=== PATIENT | female | born 1975 | race African-American/Black ===

== ENCOUNTER 2022-07-07 18:22 | Emergency (ER) | payer BC ==
[~2022-07-07] VITALS: Ht 160 cm; Wt 54.0 kg
[~2022-07-07 18:22] MED LIST: LEVO500T69 PO; MRTZ30T1; ONDAN4ODT PO
[2022-07-07 18:40] LABS: BASOPHILS % (AUTO) 1 % (0-10); EOSINOPHILS % (AUTO) 1 % (0-10); HEMATOCRIT 32 % (35-52); HEMOGLOBIN 10.7 g/dL (11.5-16.0); LYMPHOCYTES # (AUTO) 1.3 10^3/uL (1.0-4.0); LYMPHOCYTES % (AUTO) 34 % (12-44); MEAN CORPUSCULAR HEMOGLOBIN 27 pg (25-34); MEAN CORPUSCULAR HGB CONC 33 g/dL (32-36); MEAN CORPUSCULAR VOLUME 80 fL (80-99); MEAN PLATELET VOLUME 10.9 fL (9.0-12.2); MONOCYTES # (AUTO) 0.3 10^3/uL (0.0-1.0); MONOCYTES % (AUTO) 8 % (0-12); NEUTROPHILS # (AUTO) 2.3 10^3/uL (1.8-7.8); NEUTROPHILS % (AUTO) 57 % (42-75); PLATELET COUNT 280 10^3/uL (130-400)
[2022-07-07 18:45] VITALS: BP_SYST 106; BP_SYST 126; BP_SYST 136; BP_DIAS 80; BP_DIAS 83; BP_DIAS 87
[2022-07-07] MEDS ORDERED: LACTATED RINGERS 1,000 ML IV ONE ×2 (18:45→20:15)
[2022-07-07 18:54] LABS: ALBUMIN 4.3 GM/DL (3.2-4.5); CHLORIDE 109 MMOL/L (98-107); POTASSIUM 3.5 MMOL/L (3.6-5.0); SODIUM 142 MMOL/L (135-145)
[2022-07-07 18:55] LABS: CALCIUM 9.1 MG/DL (8.5-10.1)
[2022-07-07 18:56] LABS: GLUCOSE 100 MG/DL (70-105); TOTAL PROTEIN 8.4 GM/DL (6.4-8.2)
[2022-07-07 18:57] LABS: CARBON DIOXIDE 16 MMOL/L (21-32)
[2022-07-07 18:58] LABS: BILIRUBIN,TOTAL 0.2 MG/DL (0.1-1.0)
[2022-07-07 19:00] LABS: ALKALINE PHOSPHATASE 93 U/L (40-136); CREATININE SERUM 0.96 MG/DL (0.60-1.30); GFR ESTIMATED 73
--- NOTE | 2022-07-07 19:00 | ED Syncope ---
General Chief Complaint: Dizziness/Syncope Stated Complaint: WEAKNESS Nursing Triage Note: ARRIVED VIA EMS FROM [facility]. PT STATES SHE WAS STANDING OUTSIDE WAITING FOR THE [facility] AND PASSED OUT. DENIES A HX OF PASSING OUT. UNKNOWN IF SHE HIT HER HEAD BUT SHE STATES IT DOES NOT FEEL LIKE IT. 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 Allergies and Home Medications Allergies Coded Allergies: Acetaminophen (Unverified Allergy, Mild, ITCHING/HIVES, 07/15/09) Cefazolin (Unverified Allergy, Mild, ITCHING/HIVES, 07/15/09) Ibuprofen (Unverified Allergy, Mild, ITCHING/HIVES, 07/15/09) Meperidine (Unverified Allergy, Mild, ITCHING/HIVES, 07/15/09) Morphine (Unverified Allergy, Mild, ITCHING/HIVES, 07/15/09) Oxycodone (Unverified Allergy, Mild, ITCHING/HIVES, 07/15/09) Patient Home Medication List Levofloxacin (Levaquin 500 Mg) 500 Mg Tab, 1 EACH PO DAILY Prescribed by: SONIA SAMANO on 03/23/131915 Mirtazapine (Mirtazapine 30 Mg Solutab) 30 Mg Tab, (Reported) Entered as Reported by: AUTUMN CUMMINS on 08/21/09 165 Ondansetron Hcl (Zofran Oral Dissolve) 4 Mg Tab, 4 MG PO Q4H Prescribed by: SONIA SAMANO on 08/21/09 1845 Past Wlgmzcu-Qjmpgj-Swavkb Hx Patient Social History Tobacco Use?: No Substance use?: No Alcohol Frequency: Rarely Immunizations Up To Date 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 oz. kg; 21.00 BMI Method:Stated Progress/Results/Core Measures Results/Orders Lab Results Laboratory Tests Test 07/07/22 18:30 07/07/22 18:47 07/07/22 20:16 Range/Units White Blood Count 4.0 L 4.3-11.0 10^3/uL Red Blood Count 4.00 3.80-5.11 10^6/uL Hemoglobin 10.7 L 11.5-16.0 g/dL Hematocrit 32 L 35-52 % Mean Corpuscular Volume 80 80-99 fL Mean Corpuscular Hemoglobin 27 25-34 pg Mean Corpuscular Hemoglobin Concent 33 32-36 g/dL Red Cell Distribution Width 14.6 H 10.0-14.5 % Platelet Count 280 130-400 10^3/uL Mean Platelet Volume 10.9 9.0-12.2 fL Immature Granulocyte % (Auto) 0 % Neutrophils (%) (Auto) 57 42-75 % Lymphocytes (%) (Auto) 34 12-44 % Monocytes (%) (Auto) 8 0-12 % Eosinophils (%) (Auto) 1 0-10 % Basophils (%) (Auto) 1 0-10 % Neutrophils # (Auto) 2.3 1.8-7.8 10^3/uL Lymphocytes # (Auto) 1.3 1.0-4.0 10^3/uL Monocytes # (Auto) 0.3 0.0-1.0 10^3/uL Eosinophils # (Auto) 0.0 0.0-0.3 10^3/uL Basophils # (Auto) 0.0 0.0-0.1 10^3/uL Immature Granulocyte # (Auto) 0.0 0.0-0.1 10^3/uL Sodium Level 142 135-145 MMOL/L Potassium Level 3.5 L 3.6-5.0 MMOL/L Chloride Level 109 H 98-107 MMOL/L Carbon Dioxide Level 16 L 21-32 MMOL/L Anion Gap 17 H 5-14 MMOL/L Blood Urea Nitrogen 13 7-18 MG/DL Creatinine 0.96 0.60-1.30 MG/DL Estimat Glomerular Filtration Rate 73 BUN/Creatinine Ratio 14 Glucose Level 100 70-105 MG/DL Calcium Level 9.1 8.5-10.1 MG/DL Corrected Calcium 8.9 8.5-10.1 MG/DL Magnesium Level 1.7 1.6-2.4 MG/DL Total Bilirubin 0.2 0.1-1.0 MG/DL Aspartate Amino Transf (AST/SGOT) 36 H 5-34 U/L Alanine Aminotransferase (ALT/SGPT) 16 0-55 U/L Alkaline Phosphatase 93 40-136 U/L Total Creatine Kinase 80 29-168 U/L Creatine Kinase MB 0.5 <6.6 NG/ML Troponin I < 0.028 <0.028 NG/ML B-Type Natriuretic Peptide < 10.0 <100.0 PG/ML Total Protein 8.4 H 6.4-8.2 GM/DL Albumin 4.3 3.2-4.5 GM/DL TSH [place] Testing 1.43 0.35-4.94 UIU/ML Serum Test, Qualitative NEGATIVE NEGATIVE Serum Alcohol < 10 <10 MG/DL Influenza Type A (RT-PCR) Not Detected Not Detecte Influenza Type B (RT-PCR) Not Detected Not Detecte SARS-CoV-2 RNA (RT-PCR) Not Detected Not Detecte Urine Color YELLOW Urine Clarity SL CLOUDY Urine pH 6.5 5-9 Urine Specific [place] 1.015 L 1.016-1.022 Urine Protein TRACE H NEGATIVE Urine Glucose (UA) NEGATIVE NEGATIVE Urine Ketones NEGATIVE NEGATIVE Urine Nitrite NEGATIVE NEGATIVE Urine Bilirubin NEGATIVE NEGATIVE Urine Urobilinogen 0.2 < = 1.0 MG/DL Urine Leukocyte Esterase NEGATIVE NEGATIVE Urine RBC (Auto) NEGATIVE NEGATIVE Urine RBC NONE /HPF Urine WBC NONE /HPF Urine Squamous Epithelial Cells 2-5 /HPF Urine Crystals NONE /LPF Urine Bacteria TRACE /HPF Urine Casts NONE /LPF Urine Mucus NEGATIVE /LPF Urine Culture Indicated NO Urine Opiates Screen NEGATIVE NEGATIVE Urine Oxycodone Screen NEGATIVE NEGATIVE Urine Methadone Screen NEGATIVE NEGATIVE Urine Propoxyphene Screen NEGATIVE NEGATIVE Urine Barbiturates Screen NEGATIVE NEGATIVE Ur Tricyclic Antidepressants Screen NEGATIVE NEGATIVE Urine Phencyclidine Screen NEGATIVE NEGATIVE Urine Amphetamines Screen NEGATIVE NEGATIVE Urine Methamphetamines Screen NEGATIVE NEGATIVE Urine Benzodiazepines Screen NEGATIVE NEGATIVE Urine Cocaine Screen NEGATIVE NEGATIVE Urine Cannabinoids Screen NEGATIVE NEGATIVE My Orders Orders - SONIA SAMANO DO Ed Iv/Invasive Line Start (07/07/22 18:33) Ekg Tracing (07/07/22 18:33) Monitor-Rhythm Ecg Trace Only (07/07/22 18:33) Ct Head Wo-R/O Stroke (07/07/22 18:33) Alcohol (07/07/22 18:33) Bnp [place] (07/07/22 18:33) Cbc With Automated Diff (07/07/22 18:33) Comprehensive Metabolic Panel (07/07/22 18:33) Creatine Kinase (07/07/22 18:33) Creatine Kinase Mb (07/07/22 18:33) Drug Screen Stat (Urine) (07/07/22 18:33) Hcg,Qualitative Serum (07/07/22 18:33) Magnesium (07/07/22 18:33) Thyroid Analyzer (07/07/22 18:33) Ua Culture If Indicated (07/07/22 18:33) Troponin I Araceli (07/07/22 18:33) Ed Iv/Invasive Line Start (07/07/22 18:33) Lactated Ringers (Lr 1000 Ml Iv Solution (07/07/22 18:45) Chest 1 View, Ap/Pa Only (07/07/22 18:33) Covid 19 Inhouse Test (07/07/22 18:33) Influenza A And B By Pcr (07/07/22 18:33) Isolation Central Supply Req (07/07/22 18:33) Orthostatic Vital Signs (Adult (07/07/22 18:35) Ed Iv/Invasive Line Start (07/07/22 20:01) Lactated Ringers (Lr 1000 Ml Iv Solution (07/07/22 20:15) Ankle, Left, 3 Views (07/07/22 20:41) Dipht,Pertuss(Acell),Tet Adult (Boostrix (07/07/22 20:45) Medications Given in ED Current Medications Medications Dose Ordered Sig/Yvonne Route Start Time Stop Time Status Last Admin Dose Admin Lactated Ringer's 1,000 ml @ 0 mls/hr Q0M ONCE IV 07/07/22 18:45 07/07/22 18:46 DC 07/07/22 18:51 1,000 MLS/HR Lactated Ringer's 1,000 ml @ 0 mls/hr Q0M ONCE IV 07/07/22 20:15 07/07/22 20:16 DC 07/07/22 20:26 999 MLS/HR Vital Signs/I&O 07/07/22 07/07/22 18:22 18:45 Temp 36.7 Pulse 115 115 111 117 Resp 16 B/P (MAP) 123/79 (94) 136/83 (100) 126/87 (100) 106/80 (89) Pulse Ox 99 O2 Delivery Room Air Blood Pressure Mean: 89 Departure Impression Primary Impression: Syncope Additional Impressions: Volume depletion Abrasion, left ankle, initial encounter LEFT ANKLE SPRAIN/CONTUSION Ijkwoxyfsb-ukfohjfgn-ekuxpsl (DPT) vaccination administered at current visit Disposition: HOME, SELF-CARE Condition: Improved Departure-Patient Inst. Decision time for Depature: 20:40 Referrals: MARLY AVILA DO (PCP) Primary Care Physician COLT PENA (Family) Primary Care Physician Patient Instructions: Abrasions ED, Ankle Sprain (DC), Dehydration, Adult ED, Diphtheria and Tetanus Toxoids, and Acellular Pertussis Vaccine, Syncope (Fainting) (DC) Add. Discharge Instructions: LOTS OF CLEAR LIQUIDS--WATER, BROTH, JELLO,GATORADE TYLENOL AND MOTRIN NEEDED FOR PAIN ICE TO SORE AREAS AT 20 MINUTE INTERVALS FOLLOW UP WITH YOUR DR NEEDED, RETURN TO ER IF YOU HAVE ANY NEW OR WORSENING OF SYMPTOMS All discharge instructions reviewed with patient and/or family. Voiced understanding. SONIA SAMANO DO Jul 07, 2022 19:00
[2022-07-07 19:01] LABS: BUN/CREATININE RATIO 14
[2022-07-07 19:03] LABS: ALANINE AMINOTRANSFERASE 16 U/L (0-55); CREATINE KINASE 80 U/L (29-168); MAGNESIUM 1.7 MG/DL (1.6-2.4)
[2022-07-07 19:10] LABS: CREATINE KINASE MB 0.5 NG/ML (<6.6)
[2022-07-07 19:23] LABS: TSH (THYROID ANALYZER) 1.43 UIU/ML (0.35-4.94)
--- NOTE | 2022-07-07 19:41 | Diagnostic Imaging Report ---
PROCEDURE: CT head wo r/o stroke. TECHNIQUE: Multiple contiguous axial images were obtained through the brain without the use of intravenous contrast. Auto Exposure Controls were utilized during the CT exam to meet ALARA standards for radiation dose reduction. INDICATION: Passed out. Elevated blood sugar. EXAMINATION: CT brain without contrast 07/07/2022. FINDINGS: There is no hemorrhage or infarct. No mass, mass effect or midline shift. No hydrocephalus. The osseous structures intact. Paranasal sinuses and mastoid air cells clear. No fractures appreciated. IMPRESSION: 1. Negative head CT. Dictated by: Dictated on workstation # [id number]
--- NOTE | 2022-07-07 19:42 | Diagnostic Imaging Report ---
INDICATION: Syncopal episode EXAMINATION: Chest 07/07/2022 FINDINGS: The cardiomediastinal silhouette is unremarkable. The pulmonary vasculature is within normal limits. The lungs and pleural spaces are clear. IMPRESSION: No evidence of an acute cardiopulmonary process. Dictated by: Dictated on workstation # [id number]
[2022-07-07 20:27] LABS: BILIRUBIN,URINE NEGATIVE (NEGATIVE); CLARITY,URINE SL CLOUDY; COLOR,URINE YELLOW; GLUCOSE, URINE (UA) NEGATIVE (NEGATIVE); KETONES,URINE NEGATIVE (NEGATIVE); LEUKOCYTE ESTERASE ,URINE NEGATIVE (NEGATIVE); NITRITE,URINE NEGATIVE (NEGATIVE); PH,URINE 6.5 (5-9); PROTEIN,URINE TRACE (NEGATIVE)
[2022-07-07 20:38] LABS: BACTERIA,URINE TRACE /HPF
[2022-07-07] MEDS ORDERED: TETANUS,DIPTH,PERTUSS P/F (BOOSTRIX) 0.5 ML VIAL IM ONE (20:45)
[2022-07-07 20:48] LABS: AMPHETAMINE SCREEN, URINE NEGATIVE (NEGATIVE); BARBITURATE SCREEN URINE NEGATIVE (NEGATIVE); BENZODIAZEPINES SCREEN URINE NEGATIVE (NEGATIVE); CANNABINOID SCREEN, URINE NEGATIVE (NEGATIVE); COCAINE SCREEN URINE NEGATIVE (NEGATIVE); METHADONE STAT NEGATIVE (NEGATIVE); OPIATE SCREEN URINE NEGATIVE (NEGATIVE); OXYCODONE STAT NEGATIVE (NEGATIVE); PROPOXYPHENE STAT NEGATIVE (NEGATIVE); TRICYCLIC ANTIDEPRESSANTS SCRE NEGATIVE (NEGATIVE)
--- NOTE | 2022-07-07 20:59 | Diagnostic Imaging Report ---
Indication: Fall, pain EXAMINATION: Left ankle 07/07/2022. 3 views of the ankle FINDINGS: There is no evidence for an acute fracture or dislocation. The joint spaces are well maintained. There is no significant soft tissue swelling. IMPRESSION: No acute process. Dictated by: Dictated on workstation # [id number]
== END 2022-07-07 21:41 | disposition home or self-care (01) ==
LOC: EDUNIT# 18:22 → ER 18:24
DX: S90.512A Abrasion, left ankle, initial encounter (principal); E86.9 Volume depletion, unspecified; R55 Syncope and collapse; Z23 Encounter for immunization; Z20.822 Contact with and (suspected) exposure to COVID-19; W22.8XXA Striking against or struck by other objects, initial encounter
CPT/HCPCS: 70450; 71045; 73610; 80053; 80306; 81000; 82550; 82553; 83735; 83880; 84443; 84484; 84703; 85025; 87636; 93041; 99284; G0480; 36415; 80320; 90715; 93005